=== PATIENT | female | born 1980 | race Caucasian/White ===

== ENCOUNTER 2018-07-22 05:22 | Inpatient (IN) | payer OTHER ==
[~2018-07-22] VITALS: Ht 162.6 cm; Wt 152.0 kg
[2018-07-22] MEDS ORDERED: PRENATABS RX T1 EACH PO (06:18)
== END 2018-07-23 11:27 | disposition home or self-care (01) | DRG 779 ==
LOC: OB/GYN 05:22 → LDR 05:22 → OB/GYN 20:47
PROVIDERS: ADMIT Specialist
PROC: 3E0P7VZ Introduction of Hormone into Female Reproductive, Via Natural or Artificial Opening (ICD-10-PCS; principal; 2018-07-22)
PROC: 3E033VJ Introduction of Other Hormone into Peripheral Vein, Percutaneous Approach (ICD-10-PCS; 2018-07-22)
DX: O03.4 Incomplete spontaneous abortion without complication (principal)

== ENCOUNTER 2022-05-04 14:13 | Emergency (ER) | payer OTHER ==
[~2022-05-04] VITALS: Ht 162.6 cm; Wt 59.0 kg
[~2022-05-04 14:13] MED LIST: PRENATABS RX T1 EACH PO
[2022-05-04] MEDS ORDERED: PEPCID AC20 MG PO (23:27)
[2022-05-04] MEDS ORDERED: ZOFRAN8 MG PO (23:27)
== END 2022-05-04 23:39 | disposition home or self-care (01) ==
LOC: ER 14:13
DX: K29.70 Gastritis, unspecified, without bleeding (principal)